=== PATIENT | female | born 1970 | race African-American/Black ===

== ENCOUNTER 2017-12-27 11:37 | Emergency (ER) | payer BC, SELFPAY ==
[2017-12-27] MEDS ORDERED: Bacitracin Zinc 1 Packet ONE (13:05)
[2017-12-27] MEDS ORDERED: Lidocaine 1% PF 5 ML VIAL ONE (13:05)
--- NOTE | 2017-12-27 13:35 | RAD ---
LEFT SMALL DIGIT RADIOGRAPHS 3 VIEWS: Date: 12/27/17 PROVIDED CLINICAL HISTORY: Laceration. FINDINGS: No evidence for fracture or other acute osseous abnormality. No evidence for foreign body. IMPRESSION: As above. POS: [id number]
== END 2017-12-27 13:56 | disposition home or self-care (01) ==
LOC: ERS 11:37
DX: S61.217A Laceration without foreign body of left little finger without damage to nail, initial encounter (principal); I10 Essential (primary) hypertension; W45.8XXA Other foreign body or object entering through skin, initial encounter
CPT/HCPCS: 12001; J2001

== ENCOUNTER 2019-06-03 16:51 | Emergency (ER) | payer SELFPAY ==
[2019-06-03] MEDS ORDERED: HYDROcodone/Acetaminophen 10/325 mg Tablet ONE (17:39)
== END 2019-06-03 17:42 | disposition home or self-care (01) ==
LOC: ERS 16:51
DX: K04.7 Periapical abscess without sinus (principal); K03.81 Cracked tooth; I10 Essential (primary) hypertension
CPT/HCPCS: 99282

== ENCOUNTER 2020-04-18 19:33 | Emergency (ER) | payer SELFPAY ==
[2020-04-18] MEDS ORDERED: Ondansetron ODT 4 MG TAB ONE (20:10)
[2020-04-19 02:20] LABS: SARS-CoV-2 MS2 Positive; SARS-CoV-2 N Gene Positive; SARS-CoV-2 S Gene Positive; SARS-CoV-2 by NAA DETECTED (NotDetected); SARS-CoV-2 orf1ab Positive
== END 2020-04-18 20:14 | disposition home or self-care (01) ==
LOC: ERS 19:33
DX: U07.1 COVID-19 (principal); R11.2 Nausea with vomiting, unspecified; I10 Essential (primary) hypertension; F17.220 Nicotine dependence, chewing tobacco, uncomplicated
CPT/HCPCS: 87635; 99284; Q0162; U0003

== ENCOUNTER → 2021-11-22 | Emergency (ER) | payer OTHER, SELFPAY ==
[~2021-11-22] MED LIST: Fluorescein Opthalmic Strip ONE; Proparacaine 0.5% Opth 15 ML BOT ONE
== END ==
LOC: ERS 14:39
DX: H57.12 Ocular pain, left eye (principal); I10 Essential (primary) hypertension; F17.220 Nicotine dependence, chewing tobacco, uncomplicated
CPT/HCPCS: 99283